=== PATIENT | male | born 1995 | race Asian ===

== ENCOUNTER 2024-03-02 04:42 | Emergency (ER) | payer SELFPAY ==
[~2024-03-02] VITALS: Ht 177.8 cm; Wt 82.0 kg
[2024-03-02 05:05] VITALS: O2SAT 97
[2024-03-02] MEDS: DEXAMETHASONE 10 MG/ML VIAL IM ONE (06:06)
[2024-03-02] MEDS: KETOROLAC 30MG/ML VIAL IV ONE (06:06)
[2024-03-02] MEDS ORDERED: AMOX-494 MT (07:54)
[2024-03-02 08:14] VITALS: BP 132/87; PULSE 73; RESP 18; TEMP 98
== END 2024-03-02 08:20 | disposition home or self-care (01) ==
LOC: ER 04:42
DX: K12.2 Cellulitis and abscess of mouth (principal)
CPT/HCPCS: 99284; 87430; 87070; 70360; 96372; J1100; J1885